=== PATIENT | female | born 1960 | race Two or more races ===

== ENCOUNTER 2023-02-16 13:20 | Emergency (ER) | payer MEDICAID ==
[~2023-02-16] VITALS: Ht 152.4 cm; Wt 69.4 kg
[2023-02-16 14:17] LABS: BASOPHILS % (AUTO) 0.6 % (0-1); EOSINOPHILS # (AUTO) 0.1 X10'3 (0-0.9); HEMATOCRIT 29.5 % (35.0-45.0); HEMOGLOBIN 9.5 g/dl (12.0-16.0); LYMPHOCYTES # (AUTO) 1.7 X10'3 (1.1-4.8); LYMPHOCYTES % (AUTO) 28.9 % (21-51); MEAN CORPUSCULAR HGB CONC 32.1 g/dL (33.0-36.5); MEAN PLATELET VOLUME 7.9 FL (7.4-10.4); MONOCYTES # (AUTO) 0.5 X10'3 (0-0.9); MONOCYTES % (AUTO) 8.2 % (2-12); NEUTROPHILS # (AUTO) 3.6 X10'3 (1.8-7.7); NEUTROPHILS % (AUTO) 61.3 % (42-75); PLATELET COUNT 436 X10'3 (140-440); RED BLOOD COUNT 3.78 X10'6 (4.20-5.60); RED CELL DISTRIBUTION WIDTH 17.8 % (11.5-14.5); WHITE BLOOD COUNT 5.8 X10'3 (4.5-11.0)
[2023-02-16 14:23] LABS: URINE HCG NEGATIVE (NEG)
[2023-02-16 14:28] LABS: CLARITY,URINE CLOUDY (Clear); COLOR,URINE YELLOW (Yellow); GLUCOSE, URINE 100 mg/dl (Neg); KETONES,URINE TRACE mg/dl (Neg); LEUKOCYTE ESTERASE ,URINE TRACE (Neg); NITRITES, URINE NEGATIVE (Neg); OCCULT BLOOD,URINE NEGATIVE (Neg); PH,URINE 7.5 (4.8-8.0); PROTEIN,URINE 30 mg/dl (Neg)
[2023-02-16 14:30] LABS: ALANINE AMINOTRANSFERASE 36 U/L (12-78); ALBUMIN 3.2 G/DL (3.4-5.0); ALBUMIN/GLOBULIN RATIO 0.6 (1.1-1.5); ALKALINE PHOSPHATASE 100 IU/L (46-116); ANION GAP 7 (8-16); ASPARTATE AMINO TRANSFERASE 60 U/L (10-37); BILIRUBIN,TOTAL 0.6 MG/DL (0.1-1.0); BLOOD UREA NITROGEN 13 MG/DL (7-18); BUN/CREATININE RATIO 18.3 (10.0-20.0); CALCIUM 8.8 MG/DL (8.5-10.1); CHLORIDE 104 MMOL/L (99-107); CREATININE 0.71 MG/DL (0.40-0.90); LIPASE 64 U/L (73-393); POTASSIUM 3.6 MMOL/L (3.5-5.1); SODIUM 138 MMOL/L (135-145); TOTAL CARBON DIOXIDE 27.1 MMOL/L (24-32); TOTAL PROTEIN 8.4 G/DL (6.4-8.2); eGFR 83 ML/MIN
[2023-02-16 14:31] LABS: GLUCOSE 110 MG/DL (70-104)
[2023-02-16 14:44] LABS: MUCUS STRANDS MANY /LPF (Neg); SQUAMOUS EPITHELIAL CELL,UR MANY /LPF (FEW); UA COLLECTION TYPE CLN CATCH MIDSTREAM
[2023-02-16 14:45] LABS: BACTERIA,URINE FEW /HPF (Neg); HYALINE CASTS 0-3 /LPF (NEGATIVE)
[2023-02-16] MEDS ORDERED: iohexol 300mg/ml 100ml inj. ONE (16:31)
--- NOTE | 2023-02-16 18:13 | NUR ---
Report given to noc nurse. Pt in stable condition. Family at bedside. Pt laying on gurney.
[2023-02-16] MEDS ORDERED: morphine 2 MG/ML inj. syringe IV ONE ×2 (18:50→23:20)
--- NOTE | 2023-02-16 19:15 | NUR ---
ivp pain med given by charge machine operator
--- NOTE | 2023-02-16 19:34 | NUR ---
snack provided md [place]anto
[2023-02-17 02:39] VITALS: BP 123/65
--- NOTE | 2023-02-17 03:49 | NUR ---
REACH AIR MED AT BEDSIDE. PT READY FOR TX. REPORT GIVEN TO FLIGHT NURSE. ETIENNE STEIN CALLED TO UPDATE STATUS
== END 2023-02-17 03:53 | disposition short-term general hospital (02) ==
LOC: ER 13:21
DX: R10.84 Generalized abdominal pain (principal); D09.9 Carcinoma in situ, unspecified; R19.7 Diarrhea, unspecified; R11.10 Vomiting, unspecified
CPT/HCPCS: 36415; 74177; 80053; 81001; 81025; 83690; 85025; 96374; 96376; 99285; J2270; J3490; Q9967